=== PATIENT | male | born 1990 | race Caucasian/White ===

== ENCOUNTER 2022-07-24 09:01 | Outpatient (CLI) | payer OTHER, SELFPAY | END 2022-07-24 09:02 | disposition home or self-care (01) | LOC: NFLDREF 07-25 00:21 | PROVIDERS: PCP Family Medicine; Referring Provider Family Medicine; Visit Provider Family Medicine | DX: Z00.00 Encounter for general adult medical examination without abnormal findings (principal); R68.82 Decreased libido; Z13.6 Encounter for screening for cardiovascular disorders | CPT/HCPCS: 80048; 80061; 84270; 84402; 84403 ==

== ENCOUNTER 2023-03-20 08:07 | Outpatient (CLI) | payer OTHER, SELFPAY | END 2023-03-20 08:08 | disposition home or self-care (01) | PROVIDERS: PCP Family Medicine; Visit Provider Family Medicine | DX: R10.9 Unspecified abdominal pain (principal); D61.818 Other pancytopenia | CPT/HCPCS: 80053; 85651; 86364 ==

== ENCOUNTER 2023-04-01 08:10 | Outpatient (CLI) | payer OTHER, SELFPAY | END 2023-04-01 08:11 | disposition home or self-care (01) | LOC: NFLDREF 04-03 08:31 | PROVIDERS: PCP Family Medicine; Referring Provider Family Medicine; Visit Provider Family Medicine | DX: R68.82 Decreased libido (principal); R79.89 Other specified abnormal findings of blood chemistry | CPT/HCPCS: 84270; 84402; 84403 ==